=== PATIENT | female | born 1945 | race African-American/Black ===

== ENCOUNTER 2018-03-15 11:30 | Outpatient (CLI) | payer MEDICARE, MEDICAID ==
[~2018-03-15 11:30] MED LIST: ATORVASTATIN CA20 MG ORAL; CLONAZEPAM1 MG PO; CODEINE 30MG TA30 MG ORAL; DEXILANT60 MG ORAL; DILTIAZEM HCL120 MG PO; DOCUSATE SODIU100 MG ORAL; LOSARTAN POTAS100 MG ORAL; LYRICA25 MG ORAL; POTASSIUM99 M3 PO; PROAIR HFA8.5 GM INH; PROCTOSOL-HC1 APPLIC TOPIC; QUETIAPINE FUM300 MG ORAL; RISPERIDONE2 MG ORAL; TRAZODONE HCL100 MG ORAL; UNOBMED
--- NOTE | 2018-03-15 15:42 | Diagnostic Imaging Report ---
Indication:Lower abdominal and pelvic pain Technique: Grayscale and duplex Doppler imaging of the pelvis performed utilizing a transabdominal and endovaginal scan. Comparison: None Findings: The size, contour, and configuration of the uterus is within normal limits. The uterus is retroverted. The endometrium is uniformly echogenic and normal in thickness. Uterus measures approximately 6.2 x 3 x 2.5 cm. Initial stripe is 2 mm or less. There is an echogenic mass measuring 1.5 cm in the fundal region consistent with a fibroid, likely calcified. There is history of a right oophorectomy. The left ovary is not seen. There is no free fluid. IMPRESSION: Negative pelvic ultrasound. No acute findings.
== END 2018-03-15 13:30 | disposition home or self-care (01) ==
LOC: ULS 11:30
DX: R10.30 Lower abdominal pain, unspecified (principal); R10.2 Pelvic and perineal pain; N85.4 Malposition of uterus; Z90.721 Acquired absence of ovaries, unilateral
CPT/HCPCS: 76830; 76856